=== PATIENT | female | born 1985 | race Caucasian/White ===

== ENCOUNTER 2022-09-16 12:54 | Outpatient (CLI) | payer BC, SELFPAY ==
--- NOTE | 2022-09-16 13:00 | ECG_ITS ---
Measurements Intervals [place] Rate: 82 P: 60 TN: 162 QRS: 28 QRSD: 69 T: 18 QT: 376 QTc: 442 Interpretive Statements SINUS RHYTHM BASELINE ARTIFACT POSSIBLE LEFT ATRIAL ENLARGEMENT RSR' V1 AND V2 LOW QRS VOLTAGE IN PRECORDIAL LEADS BORDERLINE ECG NO PREVIOUS ECG AVAILABLE FOR COMPARISON Electronically Signed On 09-16-2022 14:50:56 SECURITY PROJECT MANAGER by Rohan Patel M.D.
[2022-09-16 13:56] LABS: Hematocrit 36.4 % (37.0-47.0); Hemoglobin 12.1 g/dL (12.0-15.0)
== END 2022-09-16 12:55 | disposition home or self-care (01) ==
LOC: ANHSURGERY 12:59
PROVIDERS: Anesthesiology; Visit Provider Surgery Plastic and Reconstructive Surgery
DX: Z01.818 Encounter for other preprocedural examination (principal); L57.4 Cutis laxa senilis; N64.82 Hypoplasia of breast
CPT/HCPCS: 36415; 85014; 85018; 93005

== ENCOUNTER 2022-09-26 00:11 | Day surgery (SDC) | payer OTHER, SELFPAY ==
[2022-09-12 14:39] VITALS: BMI 22.1
--- NOTE | 2022-09-12 15:00 | PC.NURSE ---
Report to the Outpatient Waiting Room, entrance under the green pavilion located off [facility], at time __6:00AM on date __09/26/22 . Planned Procedure Time: ___7:30AM . Time changes happen often and if your time is changed the preop area will call you the afternoon before. - You and your visitor will be asked to self-screen and do not enter if you have any COVID symptoms. - Only one visitor is requested with a max of two and NO children visitors are allowed at this time. - The patient visitor may be requested to leave or wait in car when not with patient due to distancing restrictions. - A mask is optional within the hospital. Patients may have clear liquids (water, carbonated beverages, clear teas, apple juice) until 3 hours prior to surgery with a maximum of 20 ounces. - No food from midnight until time of surgery Take the following medications with a SIP of water the morning of surgery: ____ESCITALOPRAM Medications to discontinue per physician NONE Date to take last dose Please no make-up, nail kinyarwanda, hairspray, perfume, deodorant, or body powder the day of surgery. No jewelry (including any body piercings) or valuables the day of surgery, leave them at home. Please take a shower or bath the night before, or the morning of, surgery with an antibacterial soap. Wear comfortable, loose fitting clothing. Children are encouraged to wear pajamas. - Jewelry must be removed prior to entering the operating room. Rings and piercings that are not removed may be cut off. - The hospital will not accept responsibility for valuables. - Please leave all valuables, including medications, at home the day of surgery. If you are going home after surgery, a licensed hazmat tanker driver must drive you home. - NO public transportation without another adult if you receive anesthesia. - We recommend that an adult stay with you for 24 hours following discharge. - We also recommend that you do not drive, make important decision, drink alcoholic beverages, or take any drugs that were not prescribed by your health care provider for at least 24 hours after your discharge time. Follow any additional instructions given to you from your surgeon. If you or anyone in your household have experienced Covid symptoms in the past week, please notify your surgeon or the nurse liaison at the phone number below for possible testing. Telephone instructions given to __PATIENT____and asked if any additional questions and then verbalized understanding. Patient advised to call surgeon office or pre surgery nurse liaison [phone] if any additional questions.
[2022-09-26] VITALS (13 sets, daily range): BP systolic 101–144; BP diastolic 57–97; PULSE 77–106; RESP 12–18; TEMP 36.3–37.5; O2SAT 94–100
[2022-09-26] MEDS: LACTATED RINGERS 1,000 ML 30 ML IV CONT ×2 (06:35→12:48)
[2022-09-26 06:41] LABS: Urine Cotinine NEGATIVE
--- NOTE | 2022-09-26 07:22 | WPDHPUPDATE1 ---
History and Physical Update Update Date/Time: 09/26/22 07:22 History and Physical has been reviewed, including an updated exam of the patient. There are NO changes in the patient's condition. Risks, benefits, and alternatives have been discussed and questions answered. Patient agrees to proceed with procedure.
--- NOTE | 2022-09-26 07:23 | W.PM.PROC2 ---
Procedure Note - Detailed Date of Procedure 09/26/22 Pre-op Diagnosis micromastia,breast ptosis, skin laxity Post-op Diagnosis Same Procedure Performed 1. Bilateral augmentation mastopexy 2. Progressive tension abdominoplasty with suction lipectomy Surgeon Tye Kendrick MD Anesthesia General Findings Bilateral superior pedicle Inverted T Bilateral Kim Madden SoftTouch 40cc Right - REF# SSLP-400 SN [id number] Left - REF# SSLP-400 SN [id number] Tissue removed: 1066.3 grams Lipoaspirate: 1750 cc Description of Procedure They are here today for for the above. Previously and again today the risks, benefits, alternatives were discussed in extensive detail. I wanted them to be very realistic about the risks involved as well as expectations. We discussed aftercare and what to monitor for. I was very upfront about the risks of wound breakdown leading to loss of skin, open wounds, and need for additional procedures with permanent abdominal deformity. We discussed DVT/PE risks and management. Made sure answered all of their questions to their satisfaction today and consent was obtained. Marked in the preoperative holding area with their verification. The patient was taken to the operating room placed supine on the operating table. Anesthesia was provided by anesthesiology. A Kenny catheter was started. A surgical time-out was taken. We cleansed the skin and 1% lidocaine and 0.25% Marcaine with epinephrine was used anesthetize as a field block. She was prepped and draped in a standard 360 degree sterile fashion. Breast Tegaderm nipple Childress were placed. A 15 blade used to make an incision just superior to the inframammary fold leaving a cusp of de-epithelized tissue at the t junction. Dissection was continued until the chest wall as identified. I incised the pectoralis major along its inferior border and completely released the inferior border leaving the medial border intact. I created a subpectoral pocket in the appropriate dimensions based on our preoperative planning for the implant. I then copiously irrigated with saline solution and verified a strict hemostasis. Next the use a triple antibiotic and Betadine containing solution to irrigate the pocket. I washed my gloves with the triple antibiotic and Betadine solution. We washed the implant immediately upon opening it with this solution and only opened it when we needed it. I used implant funnel and no-touch technique. The implant was introduced into the pocket using the funnel. Having verified positioning of the implant this was closed using 2-0 Vicryl. I tailor tacked the breast into position. Placed her in a sitting position. Verified the nipple-areolar location based on preoperative planning as well as intraoperative observations and measurements in full agreement. She was placed supine. I de-epithelialized the pedicle. I then removed the inferior central portion of the breast need making sure the implant was well protected. I elevated medial and lateral tissue flaps as well for planned closure. I closed along the IMF with 2-0 Stratafix. Along the vertical with 2-0 PDS. I closed around the Rishi with 3-0 strata fix. 3-0 Monocryl along the vertical. 3-0 Stratafix along the IMF. I finally closed everything with running subcuticular 4-0 Monocryl and tissue glue. Abdomen I placed the patient in a flexed position to verify the upper and lower markings would reach. I then placed supine. A thorough abdominal examination was completed. Stab incisions were made and tumescent solution infiltrated. Once adequate time was allowed for hemostasis a 5mm basket cannula was utilized to complete suction lipectomy based on S.A.F.E. technique in multiple planes and passes. There were turned to bilateral lateral decubitus position with care taken to protect them for injury during this process. Suction lipectomy continued to result based on pre-operative planning, intra-operative ob
[2022-09-26] MEDS: ceFAZolin 2 GM/D5W 50 ML 2 GM/50 ML BAG IVPB (07:33)
[2022-09-26] MEDS: TRANEXAMIC ACID 1,000MG/ISO100 1,000 MG/100 ML BAG 200 MG IVPB (07:47)
[2022-09-26] MEDS: BUPIVACAINE/EPINEPHRINE 0.5% 10 ML VIAL 30 ML INFILTRATE (09:11)
[2022-09-26] MEDS: LIDOCAINE HCL 1% PF 30 ML VIAL INFILTRATE (09:11)
[2022-09-26] MEDS: NACL 0.9% IRRIG POUR BOTTLE 900 ML, GENTAMICIN SULFATE INJ 160 MG, ceFAZolin 2 GM, POVI... IRRIGATION (09:30)
--- NOTE | 2022-09-26 10:07 | P.PNAN_ITS ---
Anes - Initial Pre Proc Eval Procedure: Operation Date: 09/26/22 07:30 Proposed Procedures p Bilateral Breast Augmentation, - Tye Kendrick MD s Bilateral Breast Mastopexy, - Tye Kendrick MD s Abdominoplasty with Abdominal Liposuction - Tye Kendrick MD Date/Time: 09/26/22 10:07 Surgeon: Tye Kendrick MD Pre Op Diagnosis: micromastia,breast ptosis, skin laxity Patient Data Age: 37 Gender: F Height: 1.7 m Weight: 66.7 kg Last Vital Signs Temp 37.5 C 09/26/22 06:18 Pulse 83 09/26/22 06:18 Resp 16 09/26/22 06:18 BP 129/82 09/26/22 06:18 Pulse Ox 100 09/26/22 06:18 O2 Del Method Room Air 09/26/22 06:18 Allergies Allergy/AdvReac Type Severity Reaction Status Date / Time Sulfa (Sulfonamide Allergy Mild FAMILY HX Verified 09/26/22 06:52 Antibiotics) OF ALLERGY TO THIS MED Home Medications Medication Instructions Recorded Confirmed Type escitalopram oxalate 20 mg tablet 20 mg PO QAM 09/12/22 09/26/22 History Laboratory Tests 09/26/22 06:15 Cotinine Negative Patient hx anesthesia problems: none Family hx anesthesia problems: none Results Review: All pre-operative results and documents have been reviewed as part of the pre- operative evaluation. [facility] Social History Social History Smoking status: Former smoker Tobacco type: e-cigarettes/vaping Additional smoking assessment comments: SWITCHED TO NON-NICOTINE VAPE 07/27/22, SMOKED CIG 1 PACK/WEEK X 20 YEARS Alcohol intake: current Drinks per week: 14 Substance use: never Living arrangements: with family Additional living arrangements comments: HUSB & CHILDREN Spiritual care concerns: No Anes - Eval Final PreProcedure Day of Procedure 09/26/22 10:07 Patient weight: normal Heart: regular rate and rhythm Lungs: clear to auscultation Airway: Mallampati scale class II Neurological: alert and oriented Last oral intake: >/= 8 hours ASA classification: II Emergent: no Anesthetic plan: proceed Anesthesia type and monitoring: general LMA and standard monitoring Other findings: late entry pt seen prior to leaving preop Results Review: All pre-operative results and documents have been reviewed as part of the pre- operative evaluation. Informed Consent: The patient's anesthetic plan and its attendant risks and benefits were discussed with the patient/family/POA. Questions were solicited and answers provided to the satisfaction of the patient/family/POA.
[2022-09-26] MEDS: KETOROLAC 30 MG/ML VIAL (*BKC) IV PUSH (10:22)
[2022-09-26] MEDS: LACTATED RINGERS IRRIG 1,000 ML, LIDOCAINE HCL 1% LOCAL INJ 50 ML, EPINEPHrine HCL INJ ... INFILTRATE ×2 (10:22→10:23)
[2022-09-26] MEDS: ceFAZolin SODIUM 1 GM VIAL IV PUSH (11:33)
[2022-09-26] MEDS: HYDROmorphone HCL INJ (*CRX) 1 MG/ML SYR 0.5 MG IV PUSH ×2 (13:53→14:11)
--- NOTE | 2022-09-26 14:36 | PC.NURSE ---
Patient transferred to post room #289 via (Stretcher ). Support person present. Oriented to unit, room, information board, rooming in, admission packet and security measures. Patient verbalizes understanding.
[2022-09-26] MEDS: MORPHINE SULFATE (*CRX) 2 MG/ML INJ IV PUSH ×2 (14:57→22:46)
[2022-09-26] MEDS: LACTATED RINGERS 1,000 ML 125 ML IV CONT (14:58)
[2022-09-26] MEDS: oxyCODONE/ACETAMINOPHEN (*CRX) 5-325 MG TABLET PO ×2 (17:20→21:01)
[2022-09-26] MEDS: carisoprodoL (*CRX) 350 MG TABLET PO ×2 (17:21→23:22)
[2022-09-26] MEDS: GABAPENTIN 300 MG CAPSULE PO (17:21)
[2022-09-26] MEDS: ENOXAPARIN 40 MG/0.4 ML SYRINGE SUB-Q (21:00)
[2022-09-26] MEDS: DOCUSATE SODIUM 100 MG CAPSULE PO (21:00)
[2022-09-26] MEDS: SIMETHICONE 80 MG TAB.CHEW ×2 (21:05→23:21)
[2022-09-26] MEDS: diazePAM (*CRX) 5 MG TABLET PO (23:22)
[2022-09-27] MEDS: oxyCODONE/ACETAMINOPHEN (*CRX) 5-325 MG TABLET PO ×3 (01:20→07:40)
[2022-09-27] MEDS: KETOROLAC 15 MG/ML VIAL (*BKC) IV PUSH (01:20)
--- NOTE | 2022-09-27 06:31 | WPDPN ---
Progress Note: A&P Assessment and Plan (1) Encounter for cosmetic surgery: Code(s): Z41.1 - Encounter for cosmetic surgery Status: Acute Assessment and Plan: She is doing very well after progressive tension abdominoplasty with suction lipectomy and augmentation mastopexy. Will plan for discharge home. I will see her back. Today we had a lengthy discussion about the care with her and her . What to monitor for. Activity limitations. What is an emergency and went to proceed to the ER/ dial 911. This was a lengthy open-ended conversation more than 30 minutes making sure answered all of their questions. She is to call with any questions or concerns otherwise. Subjective Date/time seen: 09/27/22 06:31 Interval history: She is doing very well after progressive tension abdominoplasty with suction lipectomy and augmentation mastopexy. Pain controlled. Ambulating. Tolerating diet. No nausea vomiting. No fevers or chills. No shortness of breath. No chest pain. No calf tenderness. Review of Systems Review of Systems: All systems reviewed & are unremarkable except as noted in HPI and below Exam Narrative: Alert and oriented no obvious distress Respiratory on labored Bilateral breasts are soft. No signs of infection. No hematoma. No seroma. Good color and capillary refill. Abdomen is soft. No signs of infection. No hematoma. No seroma. Good color and capillary refill. No calf tenderness. Negative Homans. Objective Data Vital Signs Vital Signs: Vital Signs - 24 hr 09/26/22 12:48 09/26/22 12:53 09/26/22 13:00 Temperature 36.3 C L 37.1 C Pulse Rate 77 86 89 Respiratory Rate 12 18 15 Blood Pressure 102/57 L 101/74 119/65 Pulse Oximetry 100 100 100 Oxygen Delivery Simple Face Mask Simple Face Mask Simple Face Mask Oxygen Flow Rate 6 6 6 09/26/22 13:15 09/26/22 13:30 09/26/22 13:45 Temperature 37.5 C Pulse Rate 93 93 93 Respiratory Rate 17 15 15 Blood Pressure 127/76 129/80 129/81 Pulse Oximetry 100 95 94 Oxygen Delivery Room Air Room Air Room Air Oxygen Flow Rate 09/26/22 14:00 09/26/22 14:15 09/26/22 14:45 Temperature 37.3 C 37.4 C Pulse Rate 92 97 99 Respiratory Rate 12 17 16 Blood Pressure 123/73 129/77 129/74 Pulse Oximetry 100 98 100 Oxygen Delivery Nasal Cannula Nasal Cannula Oxygen Flow Rate 2 2 09/26/22 15:00 09/26/22 21:00 09/26/22 21:00 Temperature 37.3 C Pulse Rate 96 106 H Respiratory Rate 18 Blood Pressure 144/97 H Pulse Oximetry 97 96 Oxygen Delivery Nasal Cannula Room Air Oxygen Flow Rate 1 09/26/22 23:15 09/26/22 23:15 Temperature 37.3 C Pulse Rate 94 Respiratory Rate 18 Blood Pressure 114/74 Pulse Oximetry 96 Oxygen Delivery Room Air Oxygen Flow Rate Intake/Output Intake/Output: Intake & Output 09/24/22 09/25/22 09/26/22 09/27/22 23:59 23:59 23:59 23:59 Intake Total 3350 1000 Output Total 1245 620 Balance 2105 380 Meds/Results Medications: Active Medications Generic Name Dose Route Start Last Admin Trade Name Freq PRN Reason Stop Dose Admin Carisoprodol 350 mg 09/26/22 18:00 09/26/22 23:22 Carisoprodol (*Crx) 350 Mg Tablet PO 350 mg Q6HR NATE Administration Diazepam 5 mg 09/26/22 12:42 09/26/22 23:22 Diazepam (*Crx) 5 Mg Tablet PO 5 mg TID PRN Administration Anxiety Docusate Sodium 100 mg 09/26/22 21:00 09/26/22 21:00 Docusate Sodium 100 Mg Capsule PO 100 mg Q12HR NATE Administration Enoxaparin Sodium 40 mg 09/26/22 20:00 09/26/22 21:00 Enoxaparin 40 Mg/0.4 Ml Syringe SUB-Q 40 mg HS NATE Administration Escitalopram Oxalate 20 mg 09/27/22 09:00 Escitalopram Oxalate 10 Mg Tablet PO QAM NATE Gabapentin 300 mg 09/26/22 13:00 09/26/22 17:21 Gabapentin 300 Mg Capsule PO 300 mg TID NATE Administration Lactated Ringer's 1,000 mls @ 125 mls/hr 09/26/22 12:45 09/26/22 14:58 Lr - Lactated Ringer
--- NOTE | 2022-09-27 06:34 | P.DS_ITS ---
DS: Admitting Diagnosis Discharge Date 09/27/2022 Admitting Diagnosis Encounter for cosmetic surgery DS: Discharge Diagnosis Discharge Diagnosis (1) Encounter for cosmetic surgery: Code(s): Z41.1 - Encounter for cosmetic surgery Status: Acute DS: Summary Hospital Course Hospital Course: Postoperatively she has done very well. Tolerating diet. Ambulating. Pain controlled. Will discharge home. Time Spent with Patient Time attestation: Total time spent providing and/or coordinating discharge services: Exam Narrative: Alert and oriented no obvious distress Respiratory on labored Bilateral breasts are soft. No signs of infection. No hematoma. No seroma. Good color and capillary refill. Abdomen is soft. No signs of infection. No hematoma. No seroma. Good color and capillary refill. No calf tenderness. Negative Homans. DS: Data Data Completed and Pending Labs on day of discharge: Labs from last 24 hours 09/26/22 06:15 Cotinine Negative Discharge Plan Discharge Patient Disposition: Home, Self-Care Discharge Instructions: POST OPERATIVE DISCHARGE INSTRUCTIONS TYE KENDRICK M.D. [facility] [address] [place] [address] * No driving for 24 hours after anesthesia and while you are taking pain medication. * Take all prescribed medication as directed * Diet as tolerated. * No lifting or activity that raises blood pressure for 48 hours. * Regular walking / ambulation. * May shower 24 hours after surgery. Once you shower do not take pain medication before showering as the combination of medication and heat may cause you to feel dizzy or pass out. * No pools or tubs for 2 weeks. * Slowly stand up straight as tolerated. * No straining or lifting more than 20 pounds. * If no bowel movement within 24 hours may use laxative. * Call with any questions or concerns. * Dressing Care: Continue abdominal binder / foam and surgical bra 23 hours per day. If you have any questions or concerns, please call the office . If it is after hours you will be directed to the theater education teacher exchange. Shortness of breath, chest pain, or other medical emergency dial 911 / proceed to the Emergency Room. Stand Alone Forms: General Discharge Instructions Follow-up/Referrals: Tye Kendrick MD [Physician] - 1 Week Discharge Medications: Continued escitalopram oxalate 20 mg tablet 20 mg PO QAM
--- NOTE | 2022-09-27 06:34 | PM.DS ---
DS: Admitting Diagnosis Discharge Date 09/27/2022 Admitting Diagnosis Encounter for cosmetic surgery DS: Discharge Diagnosis Discharge Diagnosis (1) Encounter for cosmetic surgery: Code(s): Z41.1 - Encounter for cosmetic surgery Status: Acute DS: Summary Hospital Course Hospital Course: Postoperatively she has done very well. Tolerating diet. Ambulating. Pain controlled. Will discharge home. Time Spent with Patient Time attestation: Total time spent providing and/or coordinating discharge services: Exam Narrative: Alert and oriented no obvious distress Respiratory on labored Bilateral breasts are soft. No signs of infection. No hematoma. No seroma. Good color and capillary refill. Abdomen is soft. No signs of infection. No hematoma. No seroma. Good color and capillary refill. No calf tenderness. Negative Homans. DS: Data Data Completed and Pending Labs on day of discharge: Labs from last 24 hours 09/26/22 06:15 Cotinine Negative Discharge Plan Discharge Patient Disposition: Home, Self-Care Discharge Instructions: POST OPERATIVE DISCHARGE INSTRUCTIONS TYE KENDRICK M.D. [facility] [facility] [address] [place] [address] No driving for 24 hours after anesthesia and while you are taking pain medication. Take all prescribed medication as directed Diet as tolerated. No lifting or activity that raises blood pressure for 48 hours. Regular walking / ambulation. May shower 24 hours after surgery. Once you shower do not take pain medication before showering as the combination of medication and heat may cause you to feel dizzy or pass out. No pools or tubs for 2 weeks. Slowly stand up straight as tolerated. No straining or lifting more than 20 pounds. If no bowel movement within 24 hours may use laxative. Call with any questions or concerns. Dressing Care: Continue abdominal binder / foam and surgical bra 23 hours per day. If you have any questions or concerns, please call the office . If it is after hours you will be directed to the energy conservation director exchange. Shortness of breath, chest pain, or other medical emergency dial 911 / proceed to the Emergency Room. Stand Alone Forms: General Discharge Instructions Follow-up/Referrals: Tye Kendrick MD [Physician] - 1 Week Discharge Medications: Continued escitalopram oxalate 20 mg tablet 20 mg PO QAM
[2022-09-27] MEDS: DOCUSATE SODIUM 100 MG CAPSULE PO (07:41)
[2022-09-27] MEDS: ESCITALOPRAM OXALATE 10 MG TABLET 20 MG PO (07:41)
[2022-09-27] MEDS: GABAPENTIN 300 MG CAPSULE PO (07:42)
[2022-09-27] MEDS: carisoprodoL (*CRX) 350 MG TABLET PO (07:42)
[2022-09-27 08:20] VITALS: BP 95/62; PULSE 97; RESP 18; TEMP 37.4; O2SAT 98
[2022-09-27] MEDS: SIMETHICONE 80 MG TAB.CHEW PO (09:20)
--- NOTE | 2022-09-27 09:40 | WPDANESPN ---
Anes - Prog Note Post-Op Date/Time: 09/27/22 09:40 Cardiovascular status: normal Respiratory status: normal Airway patency: baseline Mental status: baseline Post-Op hydration status: normal Vital Signs: Last Vital Signs Temp 37.3 C 09/26/22 23:15 Pulse 94 09/26/22 23:15 Resp 18 09/26/22 23:15 BP 114/74 09/26/22 23:15 Pulse Ox 96 09/26/22 23:15 O2 Del Method Room Air 09/26/22 23:15 O2 Flow Rate 1 09/26/22 15:00 Pain Score (VAS): 0/10 I/O: Intake & Output 09/26/22 09/27/22 09/27/22 23:59 07:59 15:59 Intake Total 1500 1000 Output Total 1175 620 Balance 325 380 Post-procedural complaints: none Patient Feedback: Patient satisfied with anesthetic care.
== END 2022-09-27 09:56 | disposition home or self-care (01) ==
LOC: ANHSURGERY 07:29 → ANHOB2 14:50
PROVIDERS: Visit Provider Surgery Plastic and Reconstructive Surgery
PROC: (CPT 19316; principal; 2022-09-26 07:30)
PROC: (CPT 19316; 2022-09-26 07:30)
PROC: (CPT 19316; 2022-09-26 07:30)
DX: Z41.1 Encounter for cosmetic surgery (principal); L57.4 Cutis laxa senilis; N64.82 Hypoplasia of breast; N64.81 Ptosis of breast
CPT/HCPCS: 19316; 19325; 15877; 15847; 80307; 99199; A9270; J0171; J0690; J1100; J1170; J1580; J1650; J1885; J2250; J2270; J2370; J2405; J2704; J2710; J3010; J7120

== ENCOUNTER 2022-10-04 18:18 | Emergency (ER) | payer BC, SELFPAY ==
[2022-10-04 18:45] VITALS: BP 134/75; PULSE 86; RESP 20; TEMP 36.6; O2SAT 99
--- NOTE | 2022-10-04 21:30 | ED.EXTPRO ---
HPI - Extremity Problem General Chief complaint: Extremity Problem,Nontraumatic Stated complaint: right leg swelling Time Seen by Provider: 10/04/22 21:16 History of Present Illness HPI Narrative: 37-year-old female presenting to the emergency department for evaluation of right lower extremity pain and swelling. Patient did have a tummy tucks and breast augmentation approximately [address] Mascorro. Patient states today that she noticed she had some lower extremity swelling, contacted her surgeon and was told to present to the emergency department for evaluation. Patient denies any associated chest pain or shortness of breath. Patient is not on any current blood thinners. Patient denies any other pertinent past medical history. Related Data Home Medications Medication Instructions Recorded Confirmed escitalopram oxalate 20 mg tablet 20 mg PO QAM 09/12/22 09/26/22 Allergies Allergy/AdvReac Type Severity Reaction Status Date / Time Sulfa (Sulfonamide Allergy Mild FAMILY HX Verified 10/04/22 21:32 Antibiotics) OF ALLERGY TO THIS MED Review of Systems Review of Systems: CONSTITUTIONAL: Denies fever, chills, or sweats. EYES: Denies visual changes, redness, or discharge. ENT: Denies rhinorrhea, congestion, sore throat, or otalgia. CARDIOVASCULAR: See HPI RESPIRATORY: Denies cough or dyspnea. GASTROINTESTINAL: Denies abdominal pain, nausea, vomiting, or diarrhea. GENITOURINARY: Denies dysuria or hematuria. SKIN: Denies rash or itching. MUSCULOSKELETAL: See HPI NEUROLOGIC: Denies headache, numbness, or weakness. PMFSH Social History Social History Smoking status: Former smoker Tobacco type: e-cigarettes/vaping Additional smoking assessment comments: SWITCHED TO NON-NICOTINE VAPE 07/27/22, SMOKED CIG 1 PACK/WEEK X 20 YEARS Alcohol intake: current Drinks per week: 14 Substance use: never Additional living arrangements comments: HUSB & CHILDREN Spiritual care concerns: No Exam Narrative: APPEARANCE: Well appearing, no pain, no distress, well-nourished. HEAD: normocephalic, atraumatic. EYES: PERRLA/EOMI, conjunctivae clear. NOSE: Normal no drainage EARS:TMS clear with good light reflex. THROAT: Pharynx clear, no exudate. NECK: Supple. No adenopathy, no masses. RESPIRATORY: Airway patent, respirations nonlabored. Clear to auscultation bilaterally, no rales, rhonchi, wheezing. CARDIOVASCULAR: Regular rate and rhythm without murmurs rubs or gallops. ABDOMINAL: Soft, nontender, nondistended, normal bowel sounds MUSCULOSKELETAL: Moves all extremities. Bilateral lower extremity edema but patient complains of right greater than left swelling. NEURO: Alert. Cranial nerves II through XII intact. Grossly intact SKIN: Warm, dry. Normal Color Course Course Emergency Course: Patient does have some minor right-sided lower extremity edema. No erythema. No significant tenderness to palpation. Patient has no chest pain or shortness of breath. No clinical concern for a pulmonary embolism or DVT at this time. Patient is able to come back in the morning to have an ultrasound study. Holding off on anticoagulation until after the DVT study tomorrow. Patient was comfortable with the plan for discharge and close follow-up. All questions and concerns were addressed. Vital Signs Vital signs: Vital Signs Temperature 97.9 F 10/04/22 18:45 Pulse Rate 86 10/04/22 18:45 Respiratory Rate 20 10/04/22 18:45 Blood Pressure 134/75 10/04/22 18:45 Pulse Oximetry 99 10/04/22 18:45 Oxygen Delivery Room Air 10/04/22 18:45 Temperature 97.9 F 10/04/22 18:45 Pulse Rate 86 10/04/22 18:45 Respiratory Rate 20 10/04/22 18:45 Blood Pressure 134/75 10/04/22 18:45 Pulse Oximetry 99 10/04/22 18:45 Oxygen Delivery Room Air 10/04/22 18:45 Discharge Plan Discharge Clinical Impression: Right leg swelling Patient Disp
[2022-10-04] MEDS: HYDROcodone/acetaminophen (*CRX) 5-325 MG TABLET 2 TAB PO (21:35)
== END 2022-10-04 21:48 | disposition home or self-care (01) ==
LOC: ANHED 21:34
PROVIDERS: Emergency Provider Emergency Medicine
DX: M79.89 Other specified soft tissue disorders (principal); Z98.890 Other specified postprocedural states; F17.290 Nicotine dependence, other tobacco product, uncomplicated
CPT/HCPCS: 99283; A9270

== ENCOUNTER 2022-10-05 07:38 | Outpatient (CLI) | payer BC, SELFPAY ==
--- NOTE | ~2022-10-05 | US_ITS ---
EXAMINATION: US venous doppler LE RT DATE: 10/05/2022 09:18 INDICATION: Right lower limb swelling TECHNIQUE: Grayscale ultrasound images without and with compression and Doppler ultrasound images of the right lower extremity veins were obtained. COMPARISON: None. FINDINGS: The visualized portions of right common femoral vein, profunda (deep) femoral vein, femoral vein, pop liteal vein, peroneal trunk, posterior tibial veins, peroneal veins, gastrocnemius vein and greater s aphenous vein outflow are patent. IMPRESSION: 1. No deep venous thrombosis in the right lower limb. Reviewed, dictated and finalized at location [facility]. [facility]
== END 2022-10-05 07:39 | disposition home or self-care (01) ==
PROVIDERS: Visit Provider Emergency Medicine
DX: M79.89 Other specified soft tissue disorders (principal)
CPT/HCPCS: 93971